=== PATIENT | male | born 1945 | race Caucasian/White ===

== ENCOUNTER → 2016-06-27 | Outpatient (CLI) | payer MEDICARE, BC | END | disposition home or self-care (01) | LOC: RAD.S 09:54 | DX: R93.8 Abnormal findings on diagnostic imaging of other specified body structures (principal); J44.0 Chronic obstructive pulmonary disease with (acute) lower respiratory infection; R91.8 Other nonspecific abnormal finding of lung field; N28.1 Cyst of kidney, acquired ==